=== PATIENT | female | born 1950 | race Caucasian/White ===

== ENCOUNTER 2017-10-08 10:22 | Observation (INO) | payer MEDICARE ==
[2017-10-05 12:39] LABS: BASOPHILS # (AUTO) 0.03 x10^3/uL (0-0.1); BASOPHILS % (AUTO) 0 % (0-1); EOSINOPHILS # (AUTO) 0.18 x10^3/uL (0-0.4); EOSINOPHILS % (AUTO) 3 % (1-7); LYMPHOCYTES # (AUTO) 1.12 x10^3/uL (1-3.4); LYMPHOCYTES % (AUTO) 15 % (22-44); MD NO; MEAN CORPUSCULAR HEMOGLOBIN 31.9 pg (27.0-34.8); MEAN CORPUSCULAR HGB CONC 33.9 g/dL (32.4-35.8); MEAN CORPUSCULAR VOLUME 94.3 fL (80-100); MEAN PLATELET VOLUME 11.2 fL (7.4-10.4); MONOCYTES # (AUTO) 0.48 x10^3/uL (0.2-0.8); MONOCYTES % (AUTO) 7 % (2-9); NEUTROPHILS # (AUTO) 5.52 x10^3/uL (1.8-6.8); NEUTROPHILS % (AUTO) 75 % (42-75); PLATELET COUNT 238 x10^3/uL (130-400); RED BLOOD COUNT 4.72 x10^6/uL (3.82-5.3); RED CELL DISTRIBUTION WIDTH 13.3 % (9.6-15.2)
[2017-10-05 12:46] LABS: INTERNATIONAL NORMALIZED RATIO 1.03 (0.93-1.1); PROTHROMBIN TIME 10.7 Seconds (9.6-11.5)
[2017-10-05 12:50] LABS: ALANINE AMINOTRANSFERASE 16 U/L (12-78); ALBUMIN 3.7 g/dL (3.4-5.0); ANION GAP 5 mmol/L (5-15); CALCIUM 8.8 mg/dL (8.5-10.1); CHLORIDE 109 mmol/L (98-107); CREATININE 0.95 mg/dL (0.55-1.02)
[2017-10-05 12:53] LABS: ALKALINE PHOSPHATASE 76 U/L (45-117); BILIRUBIN,TOTAL 1.1 mg/dL (0.2-1.0); TOTAL PROTEIN 6.9 g/dL (6.4-8.2)
[~2017-10-08] VITALS: Ht 170.2 cm; Wt 70.5 kg
[~2017-10-08 10:22] MED LIST: CALC1CAP8 PO; CHOL10003 PO; LEVO125T5 PO; LOVA10TA PO
[2017-10-08] MEDS ORDERED: LACTATED RINGERS 1,000 ML IV SCH (11:04)
[2017-10-08] MEDS ORDERED: ACETAMINOPHEN 500 MG TABLET PO ONE (11:30)
[2017-10-08] MEDS ORDERED: SCOPOLAMINE PATCH, 1.5MG PATCH.TD72 TD ONE (11:30)
[2017-10-08] MEDS ORDERED: GABAPENTIN 300 MG CAPSULE PO ONE (11:30)
[2017-10-08 11:36] VITALS: BP 117/77
[2017-10-08] MEDS ORDERED: FENTANYL PF 100 MCG/2ML ONE ×2 (13:18→15:25)
[2017-10-08] MEDS ORDERED: MIDAZOLAM 1 MG/ML, 2ML ONE (13:18)
[2017-10-08] MEDS ORDERED: NEOSTIGMINE 1 MG/ML, 10ML ONE (13:40)
[2017-10-08] MEDS ORDERED: ONDANSETRON 2MG/ML, 2ML ONE (13:40)
[2017-10-08] MEDS ORDERED: GLYCOPYRROLATE 0.2MG/1ML, 5ML ONE (13:40)
[2017-10-08] MEDS ORDERED: DEXAMETHASONE 4 MG/ML, 1ML ONE (13:40)
[2017-10-08] MEDS ORDERED: PROPOFOL 10 MG/ML, 20ML ONE (13:40)
[2017-10-08] MEDS ORDERED: CEFAZOLIN 1,000 MG ONE (13:40)
[2017-10-08] MEDS ORDERED: SUCCINYLCHOLINE 20 MG/ML, 10ML ONE (13:40)
[2017-10-08] MEDS ORDERED: ROCURONIUM 10MG/ML,5ML ONE (13:40)
[2017-10-08] MEDS ORDERED: LABETALOL 5MG/ML, 20ML IV PRN (14:00)
[2017-10-08] MEDS ORDERED: PROMETHAZINE 25 MG/ML, 1ML IV PRN (14:00)
[2017-10-08] MEDS ORDERED: MEPERIDINE/PF 25MG/0.5ML IVPush PRN (14:00)
[2017-10-08] MEDS ORDERED: METOCLOPRAMIDE 5 MG/ML, 2ML IV PRN (14:00)
[2017-10-08] MEDS ORDERED: ONDANSETRON 2MG/ML, 2ML IVPush PRN ×2 (14:00→23:00)
[2017-10-08] MEDS ORDERED: HYDROmorphone 1 MG/ML, 1ML IV PRN (14:00)
[2017-10-08] MEDS ORDERED: KETOROLAC 30 MG/1 ML IV PRN (14:00)
[2017-10-08] MEDS ORDERED: ALBUTEROL SULFATE 2.5 MG/3 ML NPPB PRN (14:00)
[2017-10-08] MEDS ORDERED: hydrALAzine 20 MG/ML, 1ML IV PRN (14:00)
[2017-10-08] MEDS ORDERED: OXYcodone 5 MG/5 ML ORAL.SOL UDC PO PRN (14:00)
[2017-10-08] MEDS ORDERED: HYDROmorphone 2 MG/ML, 1ML IV PRN (14:07)
[2017-10-08] MEDS ORDERED: BUPIVACAINE/PF-EPI 0.25% 1:200K INFIL ONE (14:28)
[2017-10-08] MEDS ORDERED: HEPARIN 1,000 UNITS/ML, 10ML ONE (14:42)
[2017-10-08] MEDS ORDERED: OXYcodone 5 MG/5 ML ORAL.SOL UDC ONE (15:26)
[2017-10-08] MEDS ORDERED: KETOROLAC 30 MG/1 ML ONE (15:28)
[2017-10-08] MEDS: FENTANYL PF 100 MCG/2ML IV PRN ×3 (15:30→16:00)
[2017-10-08] MEDS ORDERED: BUPIVACAINE/PF-EPI 0.25% 1:200K ONE (15:33)
[2017-10-08 17:50] VITALS: BP 126/79
[2017-10-08] MEDS ORDERED: OXYC-306 PO (18:20)
[2017-10-08] MEDS ORDERED: ONDA4TAB7 PO (18:20)
[2017-10-08] MEDS ORDERED: OXYcodone/APAP 7.5/325MG TABLET PO ONE (18:30)
[2017-10-08] MEDS ORDERED: ONDANSETRON 4 MG TABLET PO ONE (18:30)
[2017-10-08] MEDS ORDERED: KETOROLAC 30 MG/1 ML IV ONE (18:30)
[2017-10-08 19:53] VITALS: BP 120/72
[2017-10-08] MEDS ORDERED: ONDANSETRON ODT 4 MG PO PRN (23:00)
[2017-10-08] MEDS ORDERED: OXYcodone/APAP 7.5/325MG TABLET PO PRN (23:00)
[2017-10-09 00:06] VITALS: BP 119/69
[2017-10-09 04:06] VITALS: BP 121/70
[2017-10-09] MEDS ORDERED: ACETAMINOPHEN 325 MG TABLET PO PRN (05:00)
[2017-10-09] MEDS ORDERED: LEVOTHYROXINE 125 MCG TABLET PO SCH (06:00)
[2017-10-09 06:45] VITALS: BP 100/57
[2017-10-09 09:05] VITALS: BP 91/51
== END 2017-10-09 09:50 | disposition home or self-care (01) ==
LOC: OUT 10:22 → 4NOR 17:40 → OUT 22:22 → 4NOR 22:22 → DCLOUNGE 10-09 09:30
PROVIDERS: ADMIT Specialist; ATTEND Specialist
DX: D27.9 Benign neoplasm of unspecified ovary (principal); E03.9 Hypothyroidism, unspecified; N95.0 Postmenopausal bleeding; N83.8 Other noninflammatory disorders of ovary, fallopian tube and broad ligament
CPT/HCPCS: 36415; 58571; 71046; 80053; 85025; 85610; 85730; 86304; 86850; 86900; 88112; 88305; 88307; 88331; 93005; G0378; J0330; J0690; J1100; J1644; J1885; J2250; J2405; J2704; J2710; J3010; J3490; J7120